=== PATIENT | male | born 1955 | race Caucasian/White ===

== ENCOUNTER → 2017-12-01 | Outpatient (CLI) | payer BC | END | disposition home or self-care (01) | LOC: LABWHC1 12:09 | PROVIDERS: ATTEND Family Medicine | DX: R11.0 Nausea (principal); R52 Pain, unspecified | CPT/HCPCS: 87502 ==

== ENCOUNTER → 2018-04-09 | Outpatient (CLI) | payer BC ==
[2018-04-09 10:05] LABS: Basophils % (A) 1 %; Eosinophils # (A) 0.2 k/uL (0-0.7); Eosinophils % (A) 3 %; HCT 45.1 % (39.0-53.0); HGB 15.4 gm/dL (13.0-17.5); Lymphocytes # (A) 1.8 k/uL (1.0-4.8); Lymphocytes % (A) 33 %; MCH 28.5 pg (25.0-35.0); MCHC 34.3 g/dL (31.0-37.0); Mean Platelet Volume 6.8; Monocytes # (A) 0.5 k/uL (0-1.0); Monocytes % (A) 9 %; Neutrophils # (A) 2.8 k/uL (1.3-7.7); Neutrophils % (A) 51 %; Platelet Count 238 k/uL (150-450); RBC 5.43 m/uL (4.30-5.90); RDW 13.3 % (11.5-15.5); WBC 5.5 k/uL (3.8-10.6)
[2018-04-09 10:29] LABS: ALT 36 U/L (21-72); AST 33 U/L (17-59); Albumin 4.4 g/dL (3.5-5.0); Alkaline Phosphatase 63 U/L (38-126); Anion Gap 9 mmol/L; Blood Urea Nitrogen 16 mg/dL (9-20); Calcium 9.3 mg/dL (8.4-10.2); Carbon Dioxide 28 mmol/L (22-30); Chloride 101 mmol/L (98-107); Cholesterol 183 mg/dL (<200); Glucose 97 mg/dL (74-99); HDL Cholesterol 41 mg/dL (40-60); LDL Cholesterol,Calculated 116 mg/dL (0-99); Potassium 4.7 mmol/L (3.5-5.1); Sodium 138 mmol/L (137-145); Total Bilirubin 1.2 mg/dL (0.2-1.3); Total Protein 7.3 g/dL (6.3-8.2); Triglycerides 130 mg/dL (<150)
[2018-04-09 10:39] LABS: T4, Free (Free Thyroxine) 0.98 ng/dL (0.78-2.19)
== END | disposition home or self-care (01) ==
LOC: LABWHC1 09:29
PROVIDERS: ATTEND Family Medicine
DX: E78.5 Hyperlipidemia, unspecified (principal); E55.9 Vitamin D deficiency, unspecified; R53.81 Other malaise; Z13.220 Encounter for screening for lipoid disorders
CPT/HCPCS: 36415; 80053; 80061; 82306; 84439; 84443; 85025

== ENCOUNTER → 2020-04-23 | Outpatient (CLI) | payer OTHER ==
--- NOTE | 2020-04-23 10:03 | US ---
EXAMINATION TYPE: US kidneys/renal and bladder DATE OF EXAM: 04/23/2020 COMPARISON: 04/27/2019 CLINICAL HISTORY: 64-year-old male N28.1 RENAL CYST. Follow up left renal cyst TECHNIQUE: Multiple sonographic images of the kidneys and bladder are obtained. FINDINGS: EXAM MEASUREMENTS: Right Kidney: 11.1 x 6.6 x 5.2 cm Left Kidney: 11.9 x 5.2 x 4.2 cm No hydronephrosis on either side. Left Kidney: 2.6 x 2.1 x 2.7cm hypoechoic area mid pole (previously measured 2.3 x 2.2 x 1.9 cm) Bladder: not fully distended. This limits its evaluation. Bilateral Jets seen: no Spleen: enlarged at 14.5cm with a splenule measuring 1.3cm IMPRESSION: 1. Left midpole mass is slightly increased in size at 2.7 x 2.6 cm (versus 2.3 x 2.2 cm, previously). It does not appear clearly cystic on the present exam. Contrast-enhanced renal mass protocol CT or M RI recommended for more detailed characterization. RCC not excluded at this time. 2. No hydronephrosis. 3. Splenomegaly at 14.5 cm.
== END | disposition home or self-care (01) ==
LOC: RADUSWWP 09:09
PROVIDERS: ATTEND Urology
DX: R16.1 Splenomegaly, not elsewhere classified (principal); N28.1 Cyst of kidney, acquired
CPT/HCPCS: 76770

== ENCOUNTER → 2020-05-14 | Outpatient (CLI) | payer OTHER ==
--- NOTE | 2020-05-14 08:49 | CT ---
EXAMINATION TYPE: CT abdomen wo/w con DATE OF EXAM: 05/14/2020 COMPARISON: Ultrasound 04/23/2020 HISTORY: 64-year-old male Left renal mass TECHNIQUE: Contiguous axial scanning of the abdomen before and after administration of 100 ml Isovue 300 IV contrast. Delayed images through the kidneys and coronal/sagittal reconstructions performed. CT DLP: 1595 mGycm Automated exposure control for dose reduction was used. FINDINGS: Heart normal size without pericardial effusion. Numerous pulmonary nodules at the lung bases ranging in size between 3 mm up to 1.1 cm. No pleural ef fusion. A few tiny 5 mm and smaller hypodensities within the left and mid liver too small for accurate CT sol racterization, probable tiny cysts. Portal venous system is patent. No biliary ductal dilatation. Cholecystectomy clips. Adrenal glands and pancreas appear within normal limits. Hilar splenule. Spleen mildly enlarged at 14.1 cm. No nephrolithiasis. No hydronephrosis. There is a 6 mm cortical hypodensity medial posterior mid pole right kidney too small for accurate CT characterization, likely tiny cyst. Cortical lesion lateral midpole left kidney measures 2.7 cm AP by 2.3 cm wide by 2.3 cm craniocaudal. There is no significant enhancement demonstrated or suspicious nodularity. 7 mm cortical hypodensity lower pole left kidney too small for accurate CT characterization, probable tiny cortical cyst. Prominent solo hepatic lymph node measuring 1.5 cm, axial image 24 is probably reactive/post inflamm atory. A prominent 8 mm gastrohepatic ligament lymph node is noted. Some surgical changes on the anterior abdominal wall. Scattered nonenlarged mesenteric lymph nodes ar e present. No dilated small bowel, free fluid, or free air. Mild to moderate stool burden. Transverse and descending colonic diverticulosis. No pericolonic infla mmatory change. Surgical clip at the level of the descending colon within the pericolonic fat probably a dropped clip during prior cholecystectomy. Pelvis is not imaged. Bones: [facility] within the visualized thoracic and upper to mid lumbar spine. Baastrup's disease. Acceler ated degenerative disc disease L4-L5. IMPRESSION: 1. A 2.7 CM BENIGN CYST LATERAL MIDPOLE LEFT KIDNEY CORRESPONDS TO THE QUESTIONED ULTRASOUND FINDING. INTERNAL ECHOES ON ULTRASOUND LIKELY REFLECT DEBRIS OR ARTIFACT. 2. NUMEROUS PULMONARY NODULES VISUALIZED AT THE LUNG BASES RANGING IN SIZE FROM 3 MM UP TO 1.1 CM. FU RTHER CONTRAST ENHANCED CT EVALUATION OF THE CHEST IS RECOMMENDED TO SURVEY THE ENTIRE LUNGS AND DETE RMINE SUBSEQUENT MANAGEMENT. METASTATIC DISEASE NOT EXCLUDED AT THIS TIME. 3. LEFT-SIDED COLONIC DIVERTICULOSIS WITHOUT ACUTE DIVERTICULITIS. 4. MILD SPLENOMEGALY AT 14.1 CM.
== END | disposition home or self-care (01) ==
LOC: RADCTMAIN 06:59
PROVIDERS: ATTEND Urology
DX: N28.1 Cyst of kidney, acquired (principal); K57.30 Diverticulosis of large intestine without perforation or abscess without bleeding; R16.1 Splenomegaly, not elsewhere classified; Z88.2 Allergy status to sulfonamides; Z88.1 Allergy status to other antibiotic agents
CPT/HCPCS: 74170; Q9967

== ENCOUNTER 2023-03-27 07:16 | Day surgery (SDC) | payer MEDICARE, OTHER ==
[2023-03-25 12:37] VITALS: BMI 30.8
[2023-03-27 07:43] VITALS: TEMP 97.5
[2023-03-27] MEDS ORDERED: LACTATED RINGERS 1,000 ML IV ONE (07:46)
[2023-03-27] MEDS ORDERED: LIDOCAINE 1% (10MG/ML) FOR IV START INTRADERMA ONE (07:47)
[2023-03-27] MEDS ORDERED: PROPOFOL 10 MG/ML 20 ML VIAL IV ONE (08:09)
--- NOTE | 2023-03-27 08:35 | P.PCN ---
Date of Procedure: 03/27/23 Procedure(s) Performed: Brief history: Patient is a pleasant 67-year-old white male scheduled for an elective upper endoscopy as well as colonoscopy as a part of evaluation of history of GERD/right upper quadrant abdominal pain and Hemoccult-positive stool Procedure performed: Esophagogastroduodenoscopy with biopsy Colonoscopy Preoperative diagnosis: GERD/right upper quadrant abdominal pain Hemoccult-positive stool Anesthesia: MAC Procedure: After informed consent was obtained from the patient was brought into the endoscopy unit and IV sedation was administered by anesthesia under continuous monitoring. Initially upper endoscopy was done. The Olympus GF 160 video endoscope was inserted inserted into the mouth and esophagus intubated without any difficulty and was gradually advanced into the stomach and duodenum and carefully examined. The bulb and second part of the duodenum appeared normal. The scope was then withdrawn into the stomach adequately insufflated with air and upon careful examination the antrum and body, cardia and fundus appeared normal. The scope was then withdrawn into the esophagus. The GE junction was located at 40 cm to the incisors. It appeared regular with no erythema erosions or ulcerations. Rest of the esophagus appeared normal. Patient tolerated the procedure well. At this time the patient continued to remain sedation. Initial digital rectal examination was normal. Olympus CF 160 video colonoscope was then inserted into the rectum and gradually advanced to the cecum without any difficulty. Careful examination was performed as the scope was gradually being withdrawn. The prep was excellent. The cecum, ascending colon, transverse colon, descending colon, and rectum appeared normal. There was evidence of anastomosis from previous sigmoid resection at 25 cm from the anal verge that appeared patent. There was a 3 mm distal rectal polyp that was removed by cold biopsy. Scattered left- sided diverticulosis seen. Retroflexion was performed in the rectum and no lesions were noted. Patient tolerated the procedure well. Impression: 1. Upper endoscopy revealed diffuse gastritis but no evidence of esophagitis or peptic ulcer disease 2. Colonoscopy revealed 3 mm rectal polyp status post cold biopsy and scattered left-sided diverticulosis. Recommendations: Findings of this examination were discussed with the patient as well as his family. He was advised to follow with the biopsy results. Continue with Protonix 20 mg daily and follow antireflux measures. Recommend to follow with the biopsy results and have arepeat screening colonoscopy in 10 years.
[2023-03-27 08:58] VITALS: BP 124/82; PULSE 60; RESP 16
== END 2023-03-27 09:47 | disposition home or self-care (01) ==
LOC: ORWHC2ENDO 07:16
PROVIDERS: ATTEND Internal Medicine Gastroenterology
DX: K29.50 Unspecified chronic gastritis without bleeding (principal); K21.9 Gastro-esophageal reflux disease without esophagitis; K62.1 Rectal polyp; I48.91 Unspecified atrial fibrillation; K57.30 Diverticulosis of large intestine without perforation or abscess without bleeding; M79.7 Fibromyalgia; Z88.2 Allergy status to sulfonamides; Z79.899 Other long term (current) drug therapy
CPT/HCPCS: 88305; 45380; 43239; J2704

== ENCOUNTER → 2023-04-03 | Outpatient (CLI) | payer MEDICARE ==
--- NOTE | 2023-04-03 12:46 | CT ---
EXAMINATION TYPE: CT sinus wo con DATE OF EXAM: 04/03/2023 COMPARISON: HISTORY: Sinusitis CT DLP: 593.6 mGycm. Automated Exposure Control for Dose Reduction was Utilized. TECHNIQUE: CT scan of the sinuses is performed without contrast, axial images are obtained, coronal r eformatted images are also reviewed. FINDINGS: The paranasal sinuses including the ethmoid, sphenoid, and maxillary sinuses bilaterally a re well-aerated without abnormal opacification. The ostiomeatal complex is patent bilaterally on the coronal images. The frontal sinuses are markedly hypoplastic. There are no air-fluid levels within the paranasal sinuses to suggest acute inflammation. Visualized portion of mastoid air cells show no abnormal opacification. The globes are intact bilate rally. The osseous structures are intact. IMPRESSION: No evidence of acute or chronic sinusitis. The frontal sinuses are markedly hypoplastic.
== END | disposition home or self-care (01) ==
LOC: RADCTMAIN 11:45
PROVIDERS: ATTEND Otolaryngology
DX: J32.0 Chronic maxillary sinusitis (principal)
CPT/HCPCS: 70486

== ENCOUNTER → 2023-04-27 | Outpatient (CLI) | payer MEDICARE ==
[2023-04-27 21:04] LABS: Blood Urea Nitrogen 12.3 mg/dL (9.0-27.0); Calcium 9.5 mg/dL (8.7-10.3); Carbon Dioxide 26.4 mmol/L (21.6-31.8); Chloride 102 mmol/L (96-109); Glucose 115 mg/dL (70-110); Magnesium 2.1 mg/dL (1.5-2.4); Potassium 4.2 mmol/L (3.5-5.5); Sodium 139 mmol/L (135-145)
== END | disposition home or self-care (01) ==
LOC: LABWHC1 12:25
PROVIDERS: ATTEND Nurse Practitioner Adult Health
DX: I10 Essential (primary) hypertension (principal)
CPT/HCPCS: 36415; 80048; 83735

== ENCOUNTER → 2024-01-25 | Outpatient (CLI) | payer MEDICARE ==
--- NOTE | 2024-02-07 18:24 | P.PCN ---
Date of Procedure: 01/25/24 Operative Findings: Home sleep study testing Date of services 01/25/2024 Pertinent physical findings The height is 5 feet and 10 inches, weight is 210 with a body mass index of 30.1 Pertinent history 68-year-old male patient presenting for sleep evaluation. The patient reported snoring, sleep fragmentation and chronic hypersomnia sleepiness despite averaging around 10 hours of sleep. He has a Mallampati class IV. His Timblin score is at 6. Based on that, home sleep study was ordered. He is known to have paroxysmal atrial fibrillation and hypertension Technical description The [employer] system was used to complete this home sleep study. This is a type III home sleep study. The total recording duration was 9 hours and 16 minutes. The recording start time was 9:55 PM and end time was 7:11 AM. This was an adequate study as the patient had a 9-hour of flow monitoring and oxygen saturation monitoring Results Respiratory analysis showed a total of 84 obstructive apneas and 182 obstructive hypopneas. This was consistent with moderate severe MISSY with an AHI of 29.5. Nevertheless, disease was worsened in supine body position with an AHI of 40.1 while being supine. Oxygenation analysis The patient had a total of 231 oxygen saturation episodes with a pulse ox dropping more than 4%. Baseline pulse ox was 95%, average pulse ox was 92%, lowest pulse ox was 84% This patient spent approximately 20 minutes of the sleep time below pulse ox of 89% Cardiac summary Average heart rate was 53 with a minimum heart rate of 48 maximum heart of 76 Assessment Obstructive sleep apnea with an AHI of 29.5 worsening supine body position. AHI was up to 40.1 while being supine. Nocturnal oxygen desaturation with a minimum pulse ox of 84% Paroxysmal A-fib Hypertension Chronic hypersomnia Plan Proceed with an in lab CPAP titration for moderate to severe positional obstructive sleep apnea. Encouraged weight loss. Treat comorbidities. Maintain good sleep hygiene measures. Maintain regular sleep schedule. Will follow.
== END ==
LOC: 3 N SLEEP 13:06
PROVIDERS: ATTEND Internal Medicine Critical Care Medicine
DX: G47.33 Obstructive sleep apnea (adult) (pediatric) (principal); G47.36 Sleep related hypoventilation in conditions classified elsewhere; I48.0 Paroxysmal atrial fibrillation; I10 Essential (primary) hypertension; G47.10 Hypersomnia, unspecified; Z88.1 Allergy status to other antibiotic agents; Z88.2 Allergy status to sulfonamides; Z79.01 Long term (current) use of anticoagulants; Z79.899 Other long term (current) drug therapy

== ENCOUNTER 2024-04-06 19:35 | Outpatient (CLI) | payer MEDICARE ==
--- NOTE | 2024-04-17 23:12 | P.PCN ---
Date of Procedure: 04/06/24 Operative Findings: CPAP titration report Date of services 04/06/2024 History 68-year-old male patient diagnosed having obstructive sleep apnea with an AHI of 29.5 worsened in supine body position. Patient has paroxysmal A-fib and hypertension and chronic hypersomnia. Coming in for a CPAP titration study Physical findings The patient's height is 5 feet and 10 inches, weight is 210 pounds and a body mass index is 30.1 Technical description The patient was studied using a standard complex polysomnography protocol that included recording of the 2 EKG, Central, occipital and frontal EEG, right and left outer canthus EOG, submental EMG, right and left anterior tibialis EMG, respiratory airflow by thermocouple and or pressure/flow transducer, respiratory efforts by abdominal and thoracic PVDF belts, oxygen saturation by cable oximetry. Position by observation synchronized the PSG. Stepwise CPAP titration was done to eliminate all obstructive respiratory events equipment used: [employer]. Sleep architecture The total recording duration was 4 5 6 minutes. The total sleep time was 51 minutes with a wake after sleep onset time of 25.5 minutes. The overall sleep efficiency was 11.2%. The latency to sleep onset was 116.5 minutes. No REM sleep was encountered and the patient sleep architecture was characterized by 6.9% stage I, 94.1% stage II, 0% stage III, 0% REM sleep CPAP titration study Date CPAP pressures were 5 and 6 cm of water. Noted this was replaced and the patient was admitted. She more than 2 hours of sleep to establish an adequate hydration Assessment Obstructive sleep apnea with an AHI of 29.5 worsening supine body position. AHI was up to 40.1 while being supine. The patient failed an in lab CPAP titration due to the limited number of hours and encountered which prevented our ability to perform an adequate titration. Nocturnal oxygen desaturation with a minimum pulse ox of 84% Paroxysmal A-fib Hypertension Chronic hypersomnia Plan Will offer this patient an APAP machine with a close follow-up. The patient was fitted today airfit N20 nasal mask. The patient may need to continue Ambien and Xanax as needed which she takes at home for sleep induction and maintenance. As mentioned, this is a failed study. The patient will be given a trial of APAP machine with pressures of 5/10 cm of water with subsequent follow-up.
== END 2024-04-07 05:10 | disposition home or self-care (01) ==
LOC: 3 N SLEEP 19:35
PROVIDERS: ATTEND Internal Medicine Critical Care Medicine
DX: G47.33 Obstructive sleep apnea (adult) (pediatric) (principal); G47.36 Sleep related hypoventilation in conditions classified elsewhere; I48.0 Paroxysmal atrial fibrillation; I10 Essential (primary) hypertension; Z88.2 Allergy status to sulfonamides; Z88.1 Allergy status to other antibiotic agents

== ENCOUNTER → 2024-09-05 | Outpatient (CLI) | payer MEDICARE ==
[2024-09-05 14:17] LABS: African American GFR (CKD) 83 (>60 ml/min/1.73 sqM); Blood Urea Nitrogen 20 mg/dL (9-20); Non-African American GFR(CKD) 72 (>60 ml/min/1.73 sqM)
--- NOTE | 2024-09-06 09:09 | CT ---
EXAMINATION TYPE: CT chest wo/w con DATE OF EXAM: 09/05/2024 2:40 PM COMPARISON: 05/14/2020 CLINICAL INDICATION: Male, 69 years old with history of R05.9 COUGH R06.02 SOB; PHH, Pneumonia and br onchitis in May, ongoing cough and SOB. TECHNIQUE: Multiple axial images were obtained through the chest. Sagittal and coronal reformats were created for review. MIP was performed on a separate workstation. Contrast used:100ml mL of Isovue 300 without and with IV Contrast (None if empty) Oral contrast used: (None if empty) CT DLP: 865.4 mGycm, Automated exposure control for dose reduction was used. FINDINGS: LUNGS/ PLEURA: No focal consolidation, pneumothorax perfusion. Scattered nodules are seen throughout the lungs measuring up tor 5 mm right upper lung series 3 image 24.r 5 mm left upper lung image 24, 6 mm in the left lower lung image 36, 5 mm in the right lung image 29 AIRWAY: Patent and unremarkable. HEART: Size within normal limits. MEDIASTINUM: No gross evidence of adenopathy. Abundance of lipomatous tissue narrows the left brachio cephalic vein as it communicates with the superior vena cava. The superior vena cava is also slitlike series 3 image 24. VASCULATURE: No aortic aneurysm. MUSCULOSKELETAL: Moderate disc degeneration changes are present throughout the thoracolumbar spine. B ridging osteophytes anteriorly along the spine. SOFT TISSUES/LYMPH NODES: Unremarkable. LOWER NECK: No significant findings. UPPER ABDOMEN: Scattered colonic diverticula. Small splenule. The gallbladder surgically absent. Cheyanne l cysts. IMPRESSION: 1. No evidence for acute airspace process. 2. Pulmonary nodules measuring less than 6 mm. Incidentally detected nodules of this size are genera lly considered benign in individuals without concomitant risk factors such as smoking history or othe r risk factors for malignancy. Followup imaging is generally not performed, in accordance with [place] hner Society guidelines. In high-risk patients, a [address] thorax can be considered. 3. Diffuse no pathologic skeletal hyperostosis. 4. Colonic Diverticulosis. Follow up recommendations for incidental pulmonary nodules, if there are any, are per Fleischner?s [place] [employer] [employer] or [place] [employer]. [email or web address]://radiopaedia.org/articles/nafouxrtey-[email or web address]-[email or web address]?lang=us [facility], , 09/06/2024 9:06 AM
== END | disposition home or self-care (01) ==
LOC: RADCTMAIN 13:09
PROVIDERS: ATTEND Family Medicine
DX: J18.9 Pneumonia, unspecified organism (principal); R05.9 Cough, unspecified; K57.30 Diverticulosis of large intestine without perforation or abscess without bleeding
CPT/HCPCS: 82565; 84520; 71270; 36415; Q9967

== ENCOUNTER → 2025-02-10 | Outpatient (CLI) | payer MEDICARE ==
--- NOTE | 2025-02-10 12:05 | CT ---
EXAMINATION TYPE: CT sinus wo con CT DLP: 426.5 mGycm, Automated exposure control for dose reduction was used. DATE OF EXAM: 02/10/2025 11:53 AM COMPARISON: CT sinuses 04/03/2023. CLINICAL INDICATION:Male, 69 years old with history of J32.0 CHRONIC MAXILLARY SINUSITIS; PHH, CHRONI C MAXILLARY SINUSITIS. DEVIATED SEPTUM CONTRAST: None. TECHNIQUE: Multiple thin axial images were obtained through the paranasal sinuses without the use of IV contrast. Additional coronal and sagittal reformatted images were submitted for evaluation. FINDINGS: Frontal sinuses: Hypoplastic appearance of the bilateral frontal sinuses with right greater than left . Mild mucosal thickening of the bilateral frontal sinuses. Right frontal sinus is clear. Mild mucosa l thickening and narrowing of the left frontal recess. Maxillary Sinuses: Normally developed and aerated mild mucosal thickening of the right maxillary sinu s. Moderate mucosal thickening of the left maxillary sinus. Maxillary Infundibula([facility]): Opacified bilaterally, No Dorothea cells identified. Ethmoid sinuses: Normally developed. Mild mucosal thickening bilaterally. Ethmoidal notch: Protected and abutting the lateral lamina. Sphenoid sinuses: Normally developed and minimal mucosal thickening most prominent within the left sp henoid sinus. There is sellar sphenoid sinus pneumatization without evidence of dehiscence. No dehis cence of carotid canal. No evidence of optic nerve dehiscence within the sphenoid sinus. No evidence of Onodi cells. Sphenoethmoidal recesses: Clear. Nasal septum: Mildly deviated to the left.. Nasal Turbinates: Within normal limits. Mastoid air cells & middle ears: The air cells are clear. The middle ears are grossly unremarkable. Modified Soft tissues & Brain: Partially seen without gross abnormality. Globes are intact. Other: Cribriform plate demonstrates symmetric Keros classification type 2 cribriform plate. No evidence of bony dehiscence of skull base. Lamina papyracea is intact without evidence of remote orbital fracture or orbital prolapse into the e thmoid sinus. IMPRESSION: Development of mild to moderate paranasal sinus disease. The ostiomeatal units are opacified bilgurmeeta darwin. [facility], , 02/10/2025 12:03 PM
== END | disposition home or self-care (01) ==
LOC: RADCTMAIN 11:29
PROVIDERS: ATTEND Otolaryngology
DX: J32.0 Chronic maxillary sinusitis (principal); J34.89 Other specified disorders of nose and nasal sinuses; J34.2 Deviated nasal septum
CPT/HCPCS: 70486